=== PATIENT | male | born 1970 | race Caucasian/White ===

== ENCOUNTER 2024-03-18 10:33 | Emergency (ER) | payer BC ==
[~2024-03-18] VITALS: Ht 180.3 cm; Wt 102.1 kg
[2024-03-18] MEDS ORDERED: MORPHINE SULFATE INJ 4 MG/ML DISP.SYRIN ONE (11:50)
[2024-03-18] MEDS: MORPHINE SULFATE INJ 2 MG/ML DISP.SYRIN IV ONE (11:52)
[2024-03-18 12:51] VITALS: BP 133/92; TEMP 98.7; O2SAT 96
== END 2024-03-18 12:52 | disposition home or self-care (01) ==
LOC: ER 10:35
DX: Z48.89 Encounter for other specified surgical aftercare (principal); Z85.47 Personal history of malignant neoplasm of testis; R50.9 Fever, unspecified; R61 Generalized hyperhidrosis
CPT/HCPCS: 99283; 96374; J2270; A6407